=== PATIENT | female | born 1975 | race Caucasian/White ===

== ENCOUNTER 2023-09-13 09:57 | Emergency (ER) | payer OTHER ==
[~2023-09-13] VITALS: Ht 160 cm; Wt 74.8 kg
[2023-09-13 10:13] VITALS: BP 172/124; PULSE 115; RESP 15; TEMP 98.8
[2023-09-13] MEDS ORDERED: ZOLP5TAB1 PO (11:37)
[2023-09-13] MEDS ORDERED: NITR100C7 PO (11:37)
[2023-09-13 11:58] VITALS: BP 160/90; PULSE 101; RESP 19; TEMP 98.1
== END 2023-09-13 11:58 | disposition home or self-care (01) ==
LOC: MED 09:57
DX: F43.9 Reaction to severe stress, unspecified (principal); F41.9 Anxiety disorder, unspecified; G47.00 Insomnia, unspecified; N39.0 Urinary tract infection, site not specified; I10 Essential (primary) hypertension; Z98.890 Other specified postprocedural states; Z94.0 Kidney transplant status; Z79.899 Other long term (current) drug therapy; Z79.2 Long term (current) use of antibiotics; Z88.1 Allergy status to other antibiotic agents; Z88.8 Allergy status to other drugs, medicaments and biological substances; Z91.048 Other nonmedicinal substance allergy status; Z91.040 Latex allergy status; Z91.018 Allergy to other foods
CPT/HCPCS: 93005; 99283